=== PATIENT | male | born 1955 | race Caucasian/White ===

== ENCOUNTER 2021-01-15 17:54 | Emergency (ER) | payer OTHER, SELFPAY ==
[2021-01-15 18:05] VITALS: BP 176/93; PULSE 71; RESP 17; O2SAT 96
--- NOTE | 2021-01-15 18:05 | ED.GENADULT ---
HPI - General Adult General Chief complaint: Unspecified Stated complaint: facial swelling Time Seen by Provider: 01/15/21 18:05 History of Present Illness HPI narrative: 65-year-old male recently diagnosed with sinusitis on prednisone and Zyrtec also with history of hypertension complaining of 5-day history of right-sided facial swelling now getting worse. Swelling on the right side of his cheek in the maxillary region to the suborbital region. Tender, no fluctuance. Patient denies dental pain, no difficulty swallowing, no wheezing, no shortness of breath, no known allergies. No lip swelling, no rashes. No previous history of same. Related Data Allergies Allergy/AdvReac Type Severity Reaction Status Date / Time amoxicillin Allergy Unknown Rash Verified 01/15/21 18:10 Penicillins Allergy Unknown Rash Verified 01/15/21 18:10 Review of Systems Review of Systems: CONSTITUTIONAL: no fever, no weight loss, no confusion EYES: no vision changes, no eye pain ENT: no rhinorrhea, no sore throat, no difficulty swallowing, R sided facial swelling, no dental pain CARDIOVASCULAR: no chest pain, no leg edema, no palpitations RESPIRATORY: no cough, no shortness of breath, no hemoptysis GASTROINTESTINAL: no abdominal pain, no nausea, no vomiting, no diarrhea GENITOURINARY: no flank pain, no dysuria, no hematuria SKIN: no rash, no jaundice MUSCULOSKELETAL: no back pain, no trauma. NEUROLOGIC: No headache, no dizziness, no focal weakness PSYCHIATRIC: No hallucinations, no suicidal ideation [facility] Family History Family History (Updated 11/09/15 @ 23:21 by DOCTOR UNKNOWN) Father Hypertension Mother Patient's mother is in good health Sibling Family history of malignant neoplasm of brain Social History Social History Smoking status: Never smoker Alcohol intake: never Exam Narrative: General: alert, afebrile, answering all questions appropriately Head: normocephalic, atraumatic Eyes: EOMI bilaterally, anicteric, no injection ENT: moist mucous membranes, oropharynx patent, no rhinorrhea uvula midline, no soft palate swelling, poor maxillary dentition with multiple dental caries and fractured molars. no periapical abscess noted but tender at R first maxillary molar Neck: supple, trachea midline, no JVD, no neck swelling EXT: no deformity noted, moving all extremities equally Skin: warm, dry, no pallor Neuro: alert, oriented x 3; CN 2-12 grossly intact, no dysarthria Psych: affect appropriate, though content normal Course Vital Signs Vital signs: Vital Signs Pulse Rate 71 01/15/21 18:05 Respiratory Rate 17 01/15/21 18:05 Blood Pressure 176/93 H 01/15/21 18:05 Pulse Oximetry 96 01/15/21 18:05 Pulse Rate 79 01/15/21 20:20 Respiratory Rate 18 01/15/21 20:20 Blood Pressure 141/82 H 01/15/21 20:20 Pulse Oximetry 97 01/15/21 20:20 Medical Decision Making MDM Narrative Medical decision making narrative: Exam consistent with dental infection although patient denies dental pain he does have tenderness at the right first maxillary molar with multiple dental caries and fractured teeth. No difficulty swallowing, no shortness of breath, uvula midline no peritonsillar abscess or angioedema noted. No skin abscess on cheek noted. Swelling most likely consistent with dental infection. Plan is to give antibiotics and pain control with ibuprofen as needed. Patient to follow-up with dentist this week without fail. Patient will return if fever, increased facial swelling, swelling of neck or any swelling that passes the midline. All questions answered. Patient discharged home in no apparent distress afebrile ambulatory with steady gait. Differential Diagnosis Differential Diagnosis: Dental infection, angioedema, skin abscess, eye infection Medical Records Medical records reviewed: Yes I reviewed the external patient's medical records. Vital Signs Vital Signs: Vital Signs Pulse Rate 71 01/15/21 18:05 Res
[2021-01-15] MEDS: KETOROLAC 15 MG/ML VIAL (*BKC) IV PUSH (18:20)
[2021-01-15] MEDS: CLINDAMYCIN 600 MG/D5W 50 ML 600 MG/50 ML PIGGYBACK 100 MG IVPB (19:19)
[2021-01-15 20:20] VITALS: BP 141/82; PULSE 79; RESP 18; O2SAT 97
--- NOTE | 2021-01-23 07:55 | PC.NURSE ---
clindamycin infused on 01/15/21 at 1949.
== END 2021-01-15 20:23 | disposition home or self-care (01) ==
PROVIDERS: Emergency Provider Emergency Medicine; PCP Physician Assistant
DX: K04.7 Periapical abscess without sinus (principal); J32.9 Chronic sinusitis, unspecified; I10 Essential (primary) hypertension
CPT/HCPCS: 96365; 96375; 99284; J1885

== ENCOUNTER 2024-08-26 00:47 | Day surgery (SDC) | payer MEDICARE, SELFPAY ==
[2024-08-17 13:40] VITALS: BMI 41.1
--- OUTSIDE RECORDS SUMMARY | 2024-08-26 00:50 | XMS_ITS | Clinical Summary ---
Author Organization [facility] Address [address] [place] [id number] Care Team Providers Care Community Associate Name Role Phone Unavailable Primary Care Provider Unavailabl e Social History Tobacco Use Types Packs/Day Years Used Date Smoking Tobacco: Never Assessed Sex and Gender Information Value Date Recorded Sex Assigned at Not on file Legal Sex Male 11:13 AM CDT Gender Identity Not on file Sexual Orientation Not on file Plan of Treatment Health Maintenance Due Date Last Done Comments Colorectal Cancer Screening Colonoscopy (10 Years) 1955 Hepatitis C 09/04/1975 Pneumococcal Vaccine: 50+ Years (1 of 1 - PCV) 09/04/2007 Zoster Vaccines (1 of 2) 09/04/2007 Annual Medicare Wellness Visit 2022 COVID-19 Vaccine (1 - 2023-2 5 season) 2023 DTaP, Tdap and Td Vaccines ( 3 - Td or Tdap) 05/29/2026 05/29/2016, 10/01/2007 RSV Immunization or 60+ Years (1 - 1-dose 75+ series) 2032 Meningococcal B Vaccine Aged Out No l onger eligible based on patient's age to complete this topic Meningococcal Vaccine Aged Out No jackson eugenie eligible based on patient's age to complete this topic RSV Immunizations Under 20 Months Aged Out No longer eligible b ased on patient's age to complete this topic Insurance [employer]
--- OUTSIDE RECORDS SUMMARY | 2024-08-26 00:50 | XMS_ITS | Data Portability ---
Author Organization [place] [email or web address], Main Office Address [address] [place] [address] Care Team Providers Care Technical Staff Engineer Name Role Phone KOURTNEY PATEL Primary Care Provider KOURTNEY PATEL Referring Provider Assessment Encounter Date Assessment Date Assessment LastModified by Organization Details LastModified Time 01/01/2023 01/01/2023 HPI: 67-year-old male in today for evaluation of left greater than right knee pain. We have seen him in the past for his right knee. He has mkin-gh-sien osteoarthritis lateral compartment on the PA flexion view. His chief complaint right now is pain in the medial aspect of the left knee. This started about 5-6 weeks ago. Pain came on spontaneously. It is in the anterior medial aspect of the knee reveals a. He is taking ibuprofen 800 mg once a day. he has had a little bit improvement of his symptoms but not enough. He has had cortisone injection in the right knee in the past and wished to have injections in both knees today try to get some relief of his symptoms. Physical exam:67-year-old male alert pleasant. He has moderate effusions in both knees. He has anku-ep-ahdtgtch tenderness over the anterior medial aspect of the left knee. No lateral joint line tenderness. No posterior medial joint line tenderness. Moderate pain with patellofemoral grind. Hip range of motion causes no discomfort. he has mild edema in both lower extremities which is chronic. No redness or warmth noted. After ChloraPrep used on skin 20 mg Kenalog and 3 cc of 0.5% ropivacaine was injected in both knees. Risk of infection discussed. Impression: 67-year-old male who has moderate medial compartment osteoarthritis in the left knee which was aggravated little more than a month ago. He has known qlvg-dd-mfge osteoarthritis lateral compartment in the right knee on the PA flexion view. I discussed x-rays with him again. Again he wished to have cortisone injection both of his knees today. He is going to continue with the ibuprofen on as-needed basis. He may repeat cortisone injections often as every 3 months. He will call if he does not get satisfactory improvement of his symptoms. 20 minutes was spent in discussion with the patient more than half of this in wrpk-ve-fsei conversation [email or web address] Not available 01/01/2023 13:01:43 04/16/2023 04/16/2023 The patient has moderately severe primary osteoarthritis both knee joints. Noted on x-ray previously and exam. At his request under sterile conditions I injected both knee joints in the office today with 4 cc 0.5% bupivacaine and 20 mg of Kenalog each. The patient tolerated the procedure well. We discussed treatment options for anti-inflammatory medication on a regular basis he would like to try meloxicam 15 mg daily this was sent to his pharmacy today for him. He will avoid other anti-inflammatori es for now. We also talked about the possibility of a gel shot somewhere down the road talked about it in detail he will think about it he will see how his cortisone injections work for him if he decides he wants to do the gel shots he will call. Otherwise we will see him back as needed he voiced understanding agrees with above plan will call for any further problems difficulties or questions. Not available 04/16/2023 10:29:33 09/25/2023 09/25/2023 Patient has moderately severe primary osteoarthritis both knee joints as described at his request under sterile conditions I injected both knee joints in the office today with 4 cc of 0.5% Marcaine and 20 mg of Kenalog each. The patient tolerated the procedure well. The patient also inquired about gel shots he would like to try those we will give the cortisone a couple of months to work see how he does he will call us back when he is ready to try gel shots we will get these approved for him. He voiced understanding agrees above plan will continue with current conservative measures call for any further problems difficulties or questions. Not available 09/25/2023 12:01:11 01/07/2024 01/07/2024 The patient has moderately severe primary osteoarthritis both knees today's x-rays show minor advancement of changes compared to 1 year ago marginal osteophytes are slightly bigger particularly the patellofemoral articulations otherwise no significant change noted. We talked about treatment options he would like to proceed with the cortisone therefore under sterile conditions I injected both knee joints in the office today with 4 cc 0.5% bupivacaine and 20 mg of Kenalog each. The patient tolerated the procedures well. He will continue with meloxicam and current conservative measures he voiced understanding agrees above plan I will see him back in 3 months if necessary. We did talk about gel shots previously but this is too expensive for him and the cortisone works very well so we will stick with cortisone. Not available 01/07/2024 10:54:01 04/21/2024 04/21/2024 The patient has moderately severe primary osteoarthritis both knees as described. We talked about treatment options we talked about gel shots previously however his insurance does not pay very well on that and would cost him a significant amount of money so he would like to stick with the cortisone which works pretty well for him. At his request under sterile conditions I injected the patient's bilateral knee joints in the office with 4 cc of 0.5% bupivacaine and 20 mg of Kenalog each. The patient tolerated the procedures well. I will see him back as needed we can do this again in 3 months if necessary he voiced understanding and agreed with the above plan will call for any further problems difficulties or questions. Not available 04/21/2024 10:35:26 Plan of Treatment Reminders Order Date Submit Date Provider Last Modified By Organization Details Last Modified Time Details Appointments None recorded. Lab None recorded. Referral None recorded. Procedures injection/a spiration joint/bursa (PROC) 2024 025 [email or web address] In-Office Order, Internal Use Only DO Not Attach Compendium DO Not Attach Compendium, Do Not Delete/merge, [id number] 10:12:29 injection/a spiration joint/bursa (PROC) 2023 024 [email or web address] In-Office Order, Internal Use Only DO Not Attach Compendium DO Not Attach Compendium, Do Not Delete/merge, [id number] 4 10:34:06 injection/a spiration joint/bursa (PROC) 2023 024 [email or web address] In-Office Order, Internal Use Only DO Not Attach Compendium DO Not Attach Compendium, Do Not Delete/merge, [id number] 4 11:41:18 injection/a spiration joint/bursa (PROC) 2023 024 [email or web address] In-Office Order, Internal Use Only DO Not Attach Compendium DO Not Attach Compendium, Do Not Delete/merge, [id number] 4 10:08:20 injection/a spiration joint/bursa (PROC) - in office procedure, administere d by provider 2022 023 [email or web address] In-Office Order, Internal Use Only DO Not Attach Compendium DO Not Attach Compendium, Do Not Delete/merge, 3 12:46:31 Surgeries None recorded. Imaging XR, knee 2023 024 [email or web address] [facility] [place], [facility] [facility] [address], [place], [address], 4 10:55:14 XR, knee 2022 023 [email or web address] [facility] [address], [place], [address], 3 13:05:34 Medication Orders bupivacaine HCl 0.5 % (5 mg/mL) injection solution 2024 025 [email or web address] [facility] [address] [address], [place], [address], 5 10:36:06 Kenalog 10 mg/mL suspension for injection 2024 025 [email or web address] [facility] [address], [place], [address], 5 10:36:06 bupivacaine HCl 0.5 % (5 mg/mL) injection solution [address] [facility] [address] [place], [address], 4 10:43:27 Kenalog 10 mg/mL suspension for injection [address] [facility] [address] [place], [address], 4 10:43:27 Marcaine (PF) 0.5 % (5 mg/mL) injection solution [address] [facility] [address] [place], [address], 4 10:28:53 Kenalog 10 mg/mL suspension for injection [address] [facility] [address] [place], [address], 4 10:28:18 bupivacaine HCl 0.5 % (5 mg/mL) injection solution [address] [facility] [address] [place], [address], 4 10:28:03 Kenalog 10 mg/mL suspension for injection [address] [facility] [address] [place], [address], 4 10:28:18 meloxicam 15 mg tablet [address] [facility] [address] [place], [address], 4 12:19:22 Kenalog 10 mg/mL suspension for injection 2022 023 [email or web address] [facility] [address], [address], [place], [address], 4 10:28:18 ropivacaine (PF) 5 mg/mL (0.5 %) injection solution 2022 023 [email or web address] [facility] [address] [facility], [place], [address], 4 10:29:00 Patient TargetsNo targets recorded. Patient Instructions Encounter Date Encounter Id Patient Instructions Last Modified By Organization Details Last Modified Time 09/25/2023 [id number] viscosupplementa tion treatment* Not available 09/29/2023 09:20:43 Reason for Referral None Reported. Results Created Date Observation Date Name Description Value Unit Range Abnormal Flag Note LastModifiedBy Organization Detail LastModifiedTime 01/02/20 23 XR, knee No observ ation record ed. [email or web address] [facility] [address] [facility], [place], [address], 01/01/2023 12:51:47 01/07/20 24 XR, knee No observ ation record ed. [email or web address] [facility] [place] [address], [place], [address], 01/07/2024 10:55:12 Result Notes None recorded. Problems Name Problem SNOMED Code Status Onset Date Resolution Date Notes Provider Name and Address Organization Details Recorded Time Osteoarthr itis 365699468 Active Not Available [facility] 3 02:58:38 Pain of bilateral knee joints 0635265168264 04 Active 2022 AQUILES Mathew, [employer] 3 12:02:27 Bilateral osteoarthr itis of knees 5798314933721 07 Active 2023 BRETT Middleton [address], [address], [place], [address] , [employer] 4 10:29:49 Problem Notes None recorded. Procedures Surgical History Date Name Laterality Status Provider Name and Address Organization Details Recorded Time Knee arthroscopy /surgery completed Sherin Jonh AQUILES [place] [facility] 01/01/2023 12:01:48 Imaging Results Imaging Date Name Status LastModified by Organiz ation Details LastModified Time 01/01/2023 XR, knee completed [email or web address] [facility] [place] [address], [place], [address], 01/01/2023 12:51:47 01/07/2024 XR, knee completed [email or web address] [facility] [place] [address] [facility] [address], [place], [address], 01/07/2024 10:55:12 Procedure Notes None recorded. Medical Equipment None Reported. Allergies Allergen ID Allergen Name Allergen Category Reaction Reaction Severity Criticality Documentation Date Start Date Code Code System Note Provider Name and Address Organization Details Recorded Time 5271 amoxicill in medicatio n hives Not available Not available 06/11/2022 723 RxNorm Not Available [facility] 03:08:34 Medications Name Sig Start Date Stop Date Status Note LastModified by Organization Details LastModified Time atorvastati n 40 mg tablet Take 1 tablet every day by oral route. 01/01 completed Not Available Not Available Not Available lisinopril 20 mg-hydrochl orothiazide 12.5 mg tablet TAKE 1 TABLET BY MOUTH ONCE DAILY 01/06 completed Not Available Not Available Not Available azithromyci n 250 mg tablet TAKE 2 TABLETS BY MOUTH ON DAY 1, AND THEN TAKE 1 TABLET BY MOUTH ONCE A DAY ON DAY 2 THROUGH DAY 5 active Not Available Not Available No t Available ibuprofen 800 mg tablet TAKE 1 TABLET BY MOUTH TWICE DAILY NEEDED FOR PAIN active Not Available Not Available No t Available meloxicam 15 mg tablet Take 1 tablet by mouth once daily 2024 active Not Available Not Available Not Avai lable atovaquone 250 mg-proguani l 100 mg tablet 05/09 completed Not Available Not Available Not Available lisinopril 20 mg tablet TAKE 1 TABLET BY MOUTH ONCE DAILY 01/06 completed Not Available Not Available Not Available bupivacaine HCl 0.5 % (5 mg/mL) injection solution Take 40 mg by injection route. 2024 active Not Available Not Available Not Avai lable prednisone 20 mg tablet TAKE 1 TABLET BY MOUTH ONCE DAILY active Not Available Not Available No t Available amlodipine 5 mg tablet TAKE 1 TABLET BY MOUTH ONCE DAILY active Not Available Not Available No t Available sulfamethox azole 800 mg-trimetho prim 160 mg tablet TAKE 1 TABLET BY MOUTH EVERY 12 HOURS active Not Available Not Available No t Available tamsulosin 0.4 mg capsule TAKE 1 CAPSULE BY MOUTH ONCE DAILY active Not Available Not Available No t Available Kenalog 10 mg/mL suspension for injection Take 40 mg by injection route. 2024 active [facility]: 0003- 0494- 20 Not Available Not Available Not Available simvastatin 20 mg tablet 05/09 completed Not Available Not Available Not Available irbesartan 300 mg-hydrochl orothiazide 12.5 mg tablet TAKE 1 TABLET BY MOUTH ONCE DAILY active Not Available Not Available No t Available lisinopril 20 mg-hydrochl orothiazide 25 mg tablet TAKE 1 TABLET BY MOUTH ONCE DAILY 01/06 completed Not Available Not Available Not Available doxycycline hyclate 100 mg tablet TAKE 1 TABLET BY MOUTH EVERY 12 HOURS active Not Available Not Available No t Available finasteride 5 mg tablet TAKE 1 TABLET BY MOUTH ONCE DAILY active Not Available Not Available No t Available Marcaine (PF) 0.5 % (5 mg/mL) injection solution Take 40 mg by injection route. 01/06 completed Not Available Not Available Not Available Euflexxa 10 mg/mL (mw 2.4-3.6 million) intra-artic ular syringe Inject 2 mL by intra-art icular route as directed for 21 days, for bilateral knee osteoarth ritis. 01/06 completed Not Available Not Available Not Available ropivacaine (PF) 5 mg/mL (0.5 %) injection solution in office procedure , administe red by provider 01/06 completed [facility] [phone] -[phone] Not Available Not Available Not Available Xarelto 15 mg tablet 05/09 completed Not Available Not Available Not Available Xarelto 20 mg tablet 05/09 completed Not Available Not Available Not Available Vitals Date Recorded Body height Body mass index (BMI) Body weight Provider Name and Address Organization Details Last Updated DateTime 01/01/2023 165.1 cm 43.3 kg/m2 566064.02 g AQUILES Mathew [facility] 01/01/2023 12:28:43 Date Recorded Body height Body mass index (BMI) Body weight Provider Name and Address Organization Details Last Updated DateTime 04/16/2023 172.72 cm 39.5 kg/m2 024125.02 g June Marroquin [facility] 04/16/2023 10:05:57 Date Recorded Body height Body mass index (BMI) Body weight Provider Name and Address Organization Details Last Updated DateTime 09/25/2023 172.72 cm 39.4 kg/m2 774421.42 g Paula Jolley [facility] 09/25/2023 11:39:05 Date Recorded Body height Body mass index (BMI) Body weight Provider Name and Address Organization Details Last Updated DateTime 01/07/2024 172.72 cm 39.5 kg/m2 395953.02 g June Marroquin [facility] 01/07/2024 10:26:37 Date Recorded Body height Body mass index (BMI) Body weight Provider Name and Address Organization Details Last Updated DateTime 04/21/2024 172.72 cm 40.3 kg/m2 147337.98 g June Marroquin [facility] 04/21/2024 10:11:02 Social History None recorded. Functional Status Question Answer Note LastModified by Organizat ion Details LastModified Time What is your level of alcohol consumption? Occasional Information not available 01/07/2024 Mental Status None recorded. Family History Relationship Description Onset Age of this Age Resolved Age Notes LastModified by Organization Details LastModified Time Maternal Grandfather Family history of stroke [email or web address] Not available 2022 12:00:58 Maternal Grandfather Hypertensive disorder Not available 2022 12:01:26 Paternal Grandfather Family history of malignant neoplasm [email or web address] Not available 2022 12:01:11 Medical History Condition Response HISTORY OF DRUG ABUSE Y HYPERTENSION Y Past Encounters Encounter ID Performer Location Encounter Start Date Encounter Closed Date Diagnosis/Indication Diagnosis SNOMED-CT Code Diagnosis ICD10 Code Diagnosis Note [id number] Eusebio Herr MD [facility] [place] [address] [place] [address] 01/01/2023 11:19:35 01/01/2023 13:05:34 Pain of bilateral knee joints 6309305723 42116 M25.561 M25.537 [id number] Eusebio Herr MD [facility] [place] [address] [place] [address] 04/16/2023 10:03:43 04/16/2023 11:03:07 Pain of bilateral knee joints 0770663378 19594 M25.561 M25.562 Bilateral osteoarthritis of knees 8714670001 62334 M17.0 [id number] Armond Zurita MD [facility] [place] [address] [place] [address] 09/25/2023 11:35:33 09/25/2023 12:00:10 Bilateral osteoarthritis of knees 0576872149 29812 M17.0 Pain of bi lateral knee joints 3398028008 17919 M25.561 M25.665 [id number] Armond Zurita MD [facility] [place] [address] [place] [address] 01/07/2024 10:10:30 01/07/2024 10:49:35 Bilateral osteoarthritis of knees 3012266582 41952 M17.0 Pain of bi lateral knee joints 3564867400 05790 M25.561 M25.853 [id number] Armond Zurita MD [facility] [place] [address] [place] [address] 04/21/2024 10:07:28 04/21/2024 11:34:47 Bilateral osteoarthritis of knees 5173345346 18964 M17.0 Pain of bi lateral knee joints 6923274133 32535 M25.561 M25.562 Health Concerns Section Related Observation LastModified by Organization Detai ls LastModified Time None Recorded Concern Status LastModified by Organization Details LastModified Time None Recorded Advance Directives Directive None Recorded Payers Encounter Date Sequence Insurance Name Policy Number Policy Mallory Covered Member ID Mallory Member ID Guarantor Name 01/01/2023 1 [employer] (MEDICARE REPLACEMENT /ADVANTAGE - PPO) [id number] Landon Donna Schindewolf [id number] Landon Schindewolf 04/16/2023 1 [employer] (MEDICARE REPLACEMENT /ADVANTAGE - PPO) [id number] Landon R Schindewolf [id number] Landon Schindewolf 09/25/2023 1 [employer] (MEDICARE REPLACEMENT /ADVANTAGE - PPO) [id number] Landon R Schindewolf [id number] Landon Schindewolf 01/07/2024 1 [employer] (MEDICARE REPLACEMENT /ADVANTAGE - PPO) [id number] Landon Thompson Schindewolf [id number] Landon Schindewolf 04/21/2024 1 [employer] (MEDICARE REPLACEMENT /ADVANTAGE - PPO) [id number] Landon Thompson Schindewolf [id number] Landon Schindewolf Notes Date Note Type Note Provider Name and Address Organization Details Recorded Time 04/16/2023 text/html Patient returns complaining of bilateral knee pain. Three months ago he had cortisone injections he has worked fairly well for him did not give him complete relief but allowed him to get by until now. He states his knee pain has returned he denies any effusion or swelling no new trauma or injury. He has moderately severe primary osteoarthritis both knees PA flexion views show significant narrowing medial aspect of the left knee lateral aspect of the right knee. He does take ibuprofen 800 mg once a day he is wondering about prescription medication other than this. He would like to try something different. In the meantime he would also like repeat cortisone injections both knees. BRETT Middleton [address] [place] [address], [facility] [address], [place], [address], [email or web address] 04/16/2023 10:30:14 09/25/2023 text/html patient returns with bilateral knee pain he had shot of cortisone in April of this year which gave him 4-5 months relief. He states recently his knees have started to flare up again he has known moderate primary osteoarthritis both knees noted on previous x-rays which were reviewed today with the patient. Has moderate narrowing in the lateral compartment of the right knee medial compartment of the left knee and the patellofemoral articulations show good joint space remaining however he has significant large spurring off the lateral edge of the bilateral patellas smaller marginal osteophytes are noted off the medial edge of the bilateral patellas and distal femur femoral condyles. Denies any new trauma or injury no new symptoms or complaints no effusion or swelling no erythema heat or other signs of infection he does no crepitation aching pain problems with standing or walking for long periods can not squat kneel go up and down stairs well he comes in today requesting repeat cortisone injections both knees. BRETT Middleton [address], [place], [address], [employer] 09/25/2023 12:01:41 01/07/2024 text/html Patient returns with bilateral knee pain he has moderately severe primary osteoarthritis both knees it has been more than a year since his last x-rays we will get updated x-rays today to see if there are any significant changes in either knee. He states shots of cortisone 3 months ago gave him excellent relief it has been about 3-1/2 months since his last injections. Recently his pain has started to flare up again today it is about a 4 on a scale of 1-10. Denies any new symptoms no new trauma or injury no effusion or swelling no locking or catching would like both knees injected again today. He does take meloxicam daily this seems to help also. He gets by very well with conservative measures so he is not ready for total knee arthroplasties yet. New past medical history sheet was reviewed and signed on intake sheet of today's date drug allergies current medications family social history previous surgical history 10 point review of systems was reviewed and discussed in detail today with the patient. BRETT Middleton [address], [place], [address], [employer] 01/07/2024 10:56:05 04/21/2024 text/html Patient returns with bilateral knee pain he has known moderately severe primary osteoarthritis both knees with the beginning he has a tqpj-sf-qnqp osteoarthritis in the medial compartment of the left knee and the lateral compartment of the right knee with a mild windswept appearance. The patient states his pain is about a 6 on a scale of 1-10 shots of cortisone every 3 months or so gave him pretty good relief for awhile. His knee pain has flared up once again it has been 3-1/2 months since his last injections. Denies any new symptoms no new trauma or injury no effusion or swelling no erythema heat or other signs of infection. Range of motion is well-maintained he has aching pain corresponding to the qfvh-aw-udzo changes in both knees. BRETT Middleton [address] [facility], [facility] [address], [place], [address], [place] [facility] [employer] 04/21/2024 10:35:39
[2024-08-26 12:01] VITALS: BP 147/91; PULSE 70; RESP 20; TEMP 36.3; O2SAT 100
[2024-08-26] MEDS: LACTATED RINGERS 1,000 ML 150 ML IV CONT (12:04)
--- NOTE | 2024-08-26 12:44 | P.PNAN_ITS ---
Anes - Initial Pre Proc Eval Procedure: Operation Date: 08/26/24 13:00 Proposed Procedures p Screening Colonoscopy - Damian Leahy MD Date/Time: 08/26/24 12:44 Surgeon: Damian Leahy MD Pre Op Diagnosis: Encounter for screening for malignant neoplasm of Patient Data Age: 68 Gender: M Height: 1.73 m Weight: 124.7 kg Last Vital Signs Temp 36.3 C L 08/26/24 12:01 Pulse 70 08/26/24 12:01 Resp 20 08/26/24 12:01 BP 147/91 H 08/26/24 12:01 Pulse Ox 100 08/26/24 12:01 O2 Del Method Room Air 08/26/24 12:01 Allergies Allergy/AdvReac Type Severity Reaction Status Date / Time amoxicillin Allergy Unknown Rash Verified 08/26/24 11:59 Penicillins Allergy Unknown Rash Verified 08/26/24 11:59 Home Medications Medication Instructions Recorded Confirmed Type cyclobenzaprine 10 mg tablet 10 mg PO .PRN 01/31/22 08/17/24 History meloxicam 15 mg tablet 15 mg PO DAILY 08/11/23 08/26/24 History acetaminophen 650 mg PO DAILY PRN pain 03/01/24 08/17/24 History finasteride 5 mg tablet 5 mg PO DAILY #90 tabs 03/01/24 08/26/24 Rx tamsulosin 0.4 mg capsule 0.4 mg PO DAILY #90 caps 03/01/24 08/26/24 Rx irbesartan 300 1 tablet PO DAILY #90 tabs 05/17/24 08/26/24 Rx mg-hydrochlorothiazide 12.5 mg tablet amlodipine 5 mg tablet 5 mg PO DAILY #90 tabs 06/20/24 08/26/24 Rx Patient hx anesthesia problems: none Family hx anesthesia problems: none Results Review: All pre-operative results and documents have been reviewed as part of the pre- operative evaluation. [facility] Past Medical History Medical History Need for hepatitis C screening test Snoring BMI 40.0-44.9, adult Bilateral knee pain Myalgia Bilateral shoulder pain Dysuria BMI 36.0-36.9,adult Low back pain BPH (benign prostatic hyperplasia) Encounter to establish care Hyperlipidemia HTN (hypertension) Family History Family History Father Hypertension Lewy body dementia Mother Patient's mother is in good health Sibling Family history of malignant neoplasm of brain Grandparent Stomach cancer Diabetes mellitus Hypertension Social History Social History Smoking status: Never smoker Alcohol intake: current Drinks per week: 5 Substance use: never Substance use type: does not use Lack of Transportation: No Lack of Food: Never True Current Housing: I Have Housing Concerned About Future Housing: No Difficulty Paying Gas/Electric Bills: No Difficulty Paying for Meds: No Currently Unemployed: No Education: High School Diploma/GED Difficulty w/ Childcare or Family Care: No Anes - Eval Final PreProcedure Day of Procedure 08/26/24 12:44 Patient weight: morbidly obese Heart: regular rate and rhythm Lungs: clear to auscultation Airway: Mallampati scale class III Neurological: alert and oriented Last oral intake: >/= 8 hours ASA classification: III Emergent: no Anesthetic plan: proceed Anesthesia type and monitoring: general GIVS and standard monitoring Results Review: All pre-operative results and documents have been reviewed as part of the pre- operative evaluation. Informed Consent: The patient's anesthetic plan and its attendant risks and benefits were discussed with the patient/family/POA. Questions were solicited and answers provided to the satisfaction of the patient/family/POA.
--- NOTE | 2024-08-26 13:13 | PM.HPGS ---
History of Present Illness History of Present Illness Consent: Risks, benefits, and alternatives have been discussed and questions answered. Patient agrees to proceed with procedure. Chief complaint: Encounter for screening for malignant neoplasm of Narrative: Landon Menendez is a 68 year old male here for screening colonoscopy Review of Systems Review of Systems: All systems reviewed & are unremarkable except as noted in HPI and below PMFSH Past Medical History Medical History (Updated 08/26/24 @ 13:14 by Damian Leahy MD) Colon cancer screening Need for hepatitis C screening test Snoring BMI 40.0-44.9, adult Bilateral knee pain Myalgia Bilateral shoulder pain Dysuria BMI 36.0-36.9,adult Low back pain BPH (benign prostatic hyperplasia) Encounter to establish care Hyperlipidemia HTN (hypertension) Family History Family History Father Hypertension Lewy body dementia Mother Patient's mother is in good health Sibling Family history of malignant neoplasm of brain Grandparent Stomach cancer Diabetes mellitus Hypertension Social History Social History Smoking status: Never smoker Alcohol intake: current Drinks per week: 5 Substance use: never Substance use type: does not use Lack of Transportation: No Lack of Food: Never True Current Housing: I Have Housing Concerned About Future Housing: No Difficulty Paying Gas/Electric Bills: No Difficulty Paying for Meds: No Currently Unemployed: No Education: High School Diploma/GED Difficulty w/ Childcare or Family Care: No Meds Home Medications and Allergies Home Medications Medication Instructions Recorded Confirmed Type cyclobenzaprine 10 mg tablet 10 mg PO .PRN 01/31/22 08/17/24 History meloxicam 15 mg tablet 15 mg PO DAILY 08/11/23 08/26/24 History acetaminophen 650 mg PO DAILY PRN pain 03/01/24 08/17/24 History finasteride 5 mg tablet 5 mg PO DAILY #90 tabs 03/01/24 08/26/24 Rx tamsulosin 0.4 mg capsule 0.4 mg PO DAILY #90 caps 03/01/24 08/26/24 Rx irbesartan 300 1 tablet PO DAILY #90 tabs 05/17/24 08/26/24 Rx mg-hydrochlorothiazide 12.5 mg tablet amlodipine 5 mg tablet 5 mg PO DAILY #90 tabs 06/20/24 08/26/24 Rx Allergies Allergy/AdvReac Type Severity Reaction Status Date / Time amoxicillin Allergy Unknown Rash Verified 08/26/24 11:59 Penicillins Allergy Unknown Rash Verified 08/26/24 11:59 Vital Signs Vital Signs - 24 hr 08/26/24 12:01 Temperature 97.3 F L Pulse Rate 70 Respiratory Rate 20 Blood Pressure 147/91 H Pulse Oximetry 100 Oxygen Delivery Room Air Exam Const: General: comfortable and no acute distress HENMT: Face/Nose/Sinus: Normal nares present Eyes: General: appearance normal, both eyes and all related structures Neck: Neck: no JVD Resp: Auscultation: clear to auscultation bilaterally Cardio: Rate: regular rate Rhythm: regular rhythm GI: Inspection: non-distended GI Palp: Yes Soft to palpation Skin: General skin exam: normal color Neuro: General: gait normal Speech: normal speech Extrem: General: normal to inspection Psych: Mental Status: mental status grossly normal Assessment and Plan Assessment and plan (1) Colon cancer screening: Code(s): Z12.11 - Encounter for screening for malignant neoplasm of colon Status: Acute Assessment and Plan: colonoscopy
[2024-08-26 13:31] VITALS: BP 128/84; PULSE 66; RESP 20; O2SAT 98
[2024-08-26 13:41] VITALS: BP 143/91; PULSE 64; RESP 18; O2SAT 98
[2024-08-26 13:51] VITALS: BP 152/94; PULSE 62; RESP 18; O2SAT 97
== END 2024-08-26 14:01 | disposition home or self-care (01) ==
PROVIDERS: PCP Nurse Practitioner Family; Referring Provider Nurse Practitioner Family; Visit Provider Internal Medicine Gastroenterology
PROC: 0DJD8ZZ Inspection of Lower Intestinal Tract, Via Natural or Artificial Opening Endoscopic (ICD-10-PCS; CPT 45378; principal; 2024-08-26 13:00)
DX: Z12.11 Encounter for screening for malignant neoplasm of colon (principal); K57.30 Diverticulosis of large intestine without perforation or abscess without bleeding; K64.8 Other hemorrhoids; E66.01 Morbid (severe) obesity due to excess calories; Z68.41 Body mass index [BMI] 40.0-44.9, adult
CPT/HCPCS: G0121; J2704; J7120

== ENCOUNTER 2024-09-08 08:27 | Outpatient (CLI) | payer MEDICARE, SELFPAY ==
--- NOTE | 2024-09-19 10:20 | P.SLEEP_ITS ---
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 He rarely awakens from sleep feeling short of breath. He occasionally wakes at night with heartburn, belching or coughing.??He occasionally snores, occasionally snores loudly enough that others complain. He rarely has trouble sleeping when he has a cold. He never wakes up gasping for breath during the night. He never has breathing problems at night. He never sweats excessively at night. He never notices his heart pounding or beating irregularly during the night. He rarely falls asleep during the day. He rarely falls asleep involuntarily, never falls asleep while driving. He never experiences loss of muscle tone with strong emotion. He never has daytime difficulty at work due to excessive sleepiness. He never feels paralyzed on waking or falling asleep. He never experiences vivid dreams upon waking or falling asleep. He never feels afraid of going to sleep. He never has nightmares. He rarely recalls his dreams. He rarely has thoughts racing through his mind. He never feels sad or depressed. He rarely feels anxiety. He rarely notices parts of his body jerk. He never kicks during the night. He rarely feels crawling or aching feelings in his legs. He rarely feels leg pain at night. He never has morning jaw pain, occasionally grinds his teeth at night. He rarely feels bothered by pain during the day, rarely is awakened by pain during the night. He never wakes up feeling stiff in the morning, and he rarely wakes feeling sore or achy. He rarely awakens with pain in his neck, spine, or joints. He has fatigue Normal bedtime is 8:30 p.m., falling asleep within 15-20 minute, waking twice at night to go to the bathroom, returning to sleep within 10 minutes. He wakes at 6:00 a.m.. On weekends, bedtime is 9:30 p.m., wake time is 8:00 a.m.. He estimates getting between 7 and 8 hours of sleep at night. He gets 8-9 hours on the weekends. He takes no naps in the day, however says a short nap lasting 10- 15 minutes may be refreshing. Most of the time he feels good on waking. He feels better in the morning compared to other times of day. Habits:??Tobacco: Never smoker Caffeine: 1 cup per day Alcohol: 1 beer per day Recreational substances: none PMFSH Past Medical History Medical History Colon cancer screening Need for hepatitis C screening test Snoring BMI 40.0-44.9, adult Bilateral knee pain Myalgia Bilateral shoulder pain Dysuria BMI 36.0-36.9,adult Low back pain BPH (benign prostatic hyperplasia) Encounter to establish care Hyperlipidemia HTN (hypertension) Family History Family History Father Hypertension Lewy body dementia Mother Patient's mother is in good health Sibling Family history of malignant neoplasm of brain Grandparent Stomach cancer Diabetes mellitus Hypertension Social History Social History Smoking status: Never smoker Alcohol intake: current Drinks per week: 5 Substance use: never Substance use type: does not use Lack of Transportation: No Lack of Food: Never True Current Housing: I Have Housing Concerned About Future Housing: No Difficulty Paying Gas/Electric Bills: No Difficulty Paying for Meds: No Currently Unemployed: No Education: High School Diploma/GED Difficulty w/ Childcare or Family Care: No Living arrangements: with family Spiritual care concerns: No Medications Home Medications ?Medication ?Instructions ?Recorded ?Confirmed ?Type cyclobenzaprine 10 mg tablet 10 mg PO .PRN 01/31/22 09/09/24 History meloxicam 15 mg tablet 15 mg PO DAILY 08/11/23 09/09/24 History acetaminophen 650 mg PO DAILY PRN pain 03/01/24 09/09/24 History finasteride 5 mg tablet 5 mg PO DAILY #90 tabs 03/01/24 09/09/24 Rx tamsulosin 0.4 mg capsule 0.4 mg PO DAILY #90 caps 03/01/24 09/09/24 Rx irbesartan 300 1 tablet PO DAILY #90 tabs 05/17/24 09/09/24 Rx mg-hydrochlorothiazide 12.5 mg tablet amlodipine 10 mg tablet 10 mg PO DAILY #30 tabs 09/09/24 09/09/24 Rx Sleep Procedure A full night polysomnogram using the [employer] multi-channel system recorded the standard physiologic parameters including EEG, EOG, submentalis EMG, anterior tibialis EMG, EKG, body position, nasal and oral airflow using nasal pressure sensor and thermistor. Respiratory parameters of chest and abdominal movements were recorded with Respiratory Inductance Plethysmography belts. Oxygen saturation was recorded by pulse oximetry. Video monitoring was also performed. Sleep stages, periodic limb movements, and EEG arousals were scored in 30 second epochs according to the criteria of the AASM Scoring Manual. The Apnea-Hypopnea Index was calculated using CMS guidelines for definition of hypopnea while scoring respiratory events. He slept on 3 pillows. A split night was not performed due ti request from his ordering provider. Sleep Architecture The total recording time was 521.3 minutes. The total sleep time was 350.0 minutes. Sleep latency was 22.2 minutes. REM latency was 341.0 minutes. Sleep efficiency was 67.1%. The patient had 72 awakenings for an awakening index of 12.3. Wake after sleep onset time was 149.5 minutes. The patient spent 86.0 minutes, 24.6% of total sleep time in Stage N1. The patient spent 185.5 minutes, 53.0% in Stage N2. The patient spent 40.5 minutes, 11.6% in Stage N3. The patient spent 38.0 minutes, 10.9% in Stage REM sleep. Respiratory Analysis The patient had 180 hypopneas, 25 obstructive apneas, 52 mixed apneas, and 48 central apneas for an overall Apnea Hypopnea Index of 51.8. The REM Apnea Hypopnea Index was 14.2. The NREM Apnea Hypopnea Index was 56.5. The patient had a Central Apnea Hypopnea Index of 8.2. There were no Respiratory Effort Related Arousals. The Respiratory Disturbance Index is 56.6 events per hour. There was no evidence of Joe-López Respirations. Arousals There were 234 total arousals for an arousal index of 40.1. There were 176 spontaneous arousals for an index of 30.2. There were 47 arousals due to re spiratory events for an index of 8.1. There were 3 arousals due to periodic limb movements for an index of 0.5. There were 9 arousals due to isolated limb movements for an index of 1.5. Periodic Limb Movements The patient had 27 isolated limb movements with an index of 4.6. The patient had 10 periodic limb movements with an index of 1.7. Patient had a total of 37 limb movements with a total limb movement index of 6.3. Oximetry Data The patient had an average oxygen saturation of 92.3% in sleep with a minimum oxygen saturation of 77% and a maximum oxygen saturation of 98%. The patient had 292 oxygen desaturations that were 4% or greater resulting in an Oxygen Desaturation Index of 50.1. The patient spent 43.3 minutes, 8.4% of total sleep time with an oxygen saturation below 88%. Snoring Profile Snoring was mild and intermittent. Cardiac Profile The EKG showed normal sinus rhythm, average pulse rate of 56.1 bpm with a minimum pulse of rate of 45 bpm and a maximum pulse rate of 72 bpm. No arrhythmias noted. EEG Profile Unremarkable, no evidence of seizures. Assessment and Plan Assessment and Plan (1) Obstructive sleep apnea: Code(s): G47.33 - Obstructive sleep apnea (adult) (pediatric) Status: Acute Assessment and Plan: This basic nocturnal polysomnogram on 09/08/2024 shows extremely severe obstruc tive sleep apnea, the overall apnea-hypopnea index is 51.8 with a central apnea- hypopnea index of 8.2 which is elevated, normal central apnea index should be below 5 per hour. The minimum desaturation is 77% with 43.3 minutes, 8.4% the study spent below 88%. There is a positional component, the supine apnea- hypopnea index is 96.9, nonsupine apnea-hypopnea index is 48.1, twice as severe in the supine position. The patient slept with his head elevated on 3 pillows and most of the night was spent in the left lateral position, very little of the night was spent in the supine position. He had fragmented sleep with constant shifts between wake, stage I and stage II. He had delayed REM with a decreased total amount of REM. Due to the severity of hypoxemia and elevated central ap salome index, this patient is not a candidate for auto PAP. He should have a dedicated CPAP titration in the sleep lab and should be instructed to have no naps on the day of testing. Consider a sleep aid such as Lunesta 2 mg or 3 mg to get to sleep and stay asleep. Ideally he should be able to sleep in the supine position lying on the bed, not propped on 3 pillows. Propping on pillows is weight to alleviate obstruction and is appropriate in the home setting but during testing we attempt to maintain airway patency in all positions of sleep and in all sleep stages. Patient should be strongly advised not to drive while sleepy. He does not have an elevated [place] Sleepiness Scale which is subjective, some people do not perceive being sleepy when they in fact are at risk for falling asleep easily. BMI is 41.1. Weight management is advised. Clinical data suggests that weight loss of 10% can reduce the severity of respiratory events and snoring and improve AHI by as much as 25%. (2) Central sleep apnea: Code(s): G47.31 - Primary central sleep apnea Status: Acute Assessment and Plan: The patient has a central apnea index of 8.2 was elevated, normal is fewer than 5 events per hour. Elevated central apneas can be seen in the setting of congestive heart failure, stroke, opioid and alcohol. Elevated central apneas may also occur without a prior underlying problem. Consider echocardiogram to assure that the ejection fraction is greater than 45%. Data The data obtained during this sleep study is adequate for interpretation. Certification This sleep study has been reviewed by a board certified sleep medicine physician.
[2024-09-19 11:04] VITALS: BMI 41.0
== END 2024-09-09 06:25 | disposition home or self-care (01) ==
PROVIDERS: PCP Nurse Practitioner Family; Visit Provider Nurse Practitioner Family
DX: R06.83 Snoring (principal); I10 Essential (primary) hypertension; G47.9 Sleep disorder, unspecified; G47.33 Obstructive sleep apnea (adult) (pediatric); G47.31 Primary central sleep apnea
CPT/HCPCS: 95810; 99212; G0463

== ENCOUNTER 2024-09-23 09:42 | Outpatient (CLI) | payer MEDICARE, SELFPAY ==
[2024-10-17 17:04] VITALS: BMI 41.0
--- NOTE | 2024-10-17 17:04 | P.SLEEP_ITS ---
Sleep Study Date of Study: 09/23/24 Ordering Provider: Thelma Aguilar NP Interpreting Physician: Areli Dasilva DO Sleep Study Type: BiPAP Titration Height: 1.73 m Weight: 122.47 kg Body Mass Index: 41.0 Neck Circumference (inches): 18 [place]: 7 Reason for Sleep Study Polysomnogram on 09/08/2024 that showed an overall AHI of 51.8, RAMONITA of 8.2, with desaturation down to 77%. Sleep History Landon Menendez is a 69-year-old man who is required to have sleep testing for a [employer] physical exam. He rarely awakens from sleep feeling short of breath. He occasionally wakes at night with heartburn, belching or coughing.??He occasionally snores, occasionally snores loudly enough that others complain. He rarely has trouble sleeping when he has a cold. He never wakes up gasping for breath during the night. He never has breathing problems at night. He never sweats excessively at night. He never notices his heart pounding or beating irregularly during the night. He rarely falls asleep during the day. He rarely falls asleep involuntarily, never falls asleep while driving. He never experiences loss of muscle tone with strong emotion. He never has daytime difficulty at work due to excessive sleepiness. He never feels paralyzed on waking or falling asleep. He never experiences vivid dreams upon waking or falling asleep. He never feels afraid of going to sleep. He never has nightmares. He rarely recalls his dreams. He rarely has thoughts racing through his mind. He never feels sad or depressed. He rarely feels anxiety. He rarely notices parts of his body jerk. He never kicks during the night. He rarely feels crawling or aching feelings in his legs. He rarely feels leg pain at night. He never has morning jaw pain, occasionally grinds his teeth at night. He rarely feels bothered by pain during the day, rarely is awakened by pain during the night. He never wakes up feeling stiff in the morning, and he rarely wakes feeling sore or achy. He rarely awakens with pain in his neck, spine, or joints. He has fatigue Normal bedtime is 8:30 p.m., falling asleep within 15-20 minute, waking twice at night to go to the bathroom, returning to sleep within 10 minutes. He wakes at 6:00 a.m.. On weekends, bedtime is 9:30 p.m., wake time is 8:00 a.m.. He estimates getting between 7 and 8 hours of sleep at night. He gets 8-9 hours on the weekends. He takes no naps in the day, however says a short nap lasting 10- 15 minutes may be refreshing. Most of the time he feels good on waking. He feels better in the morning compared to other times of day. Habits:??Tobacco: Never smoker Caffeine: 1 cup per day Alcohol: 1 beer per day Recreational substances: none PMFSH Past Medical History Medical History Colon cancer screening Need for hepatitis C screening test Snoring BMI 40.0-44.9, adult Bilateral knee pain Myalgia Bilateral shoulder pain Dysuria BMI 36.0-36.9,adult Low back pain BPH (benign prostatic hyperplasia) Encounter to establish care Hyperlipidemia HTN (hypertension) Family History Family History Father Hypertension Lewy body dementia Mother Patient's mother is in good health Sibling Family history of malignant neoplasm of brain Grandparent Stomach cancer Diabetes mellitus Hypertension Social History Social History Smoking status: Never smoker Alcohol intake: current Drinks per week: 5 Substance use: never Substance use type: does not use Lack of Transportation: No Lack of Food: Never True Current Housing: I Have Housing Concerned About Future Housing: No Difficulty Paying Gas/Electric Bills: No Difficulty Paying for Meds: No Currently Unemployed: No Education: High School Diploma/GED Difficulty w/ Childcare or Family Care: No Living arrangements: with family Spiritual care concerns: No Medications Home Medications ?Medication ?Instructions ?Recorded ?Confirmed ?Type cyclobenzaprine 10 mg tablet 10 mg PO .PRN 01/31/22 09/09/24 History meloxicam 15 mg tablet 15 mg PO DAILY 08/11/23 09/09/24 History acetaminophen 650 mg PO DAILY PRN pain 11/19/24 05/30/25 History finasteride 5 mg tablet 5 mg PO DAILY #90 tabs 03/01/24 09/09/24 Rx tamsulosin 0.4 mg capsule 0.4 mg PO DAILY #90 caps 03/01/24 09/09/24 Rx irbesartan 300 1 tablet PO DAILY #90 tabs 05/17/24 09/09/24 Rx mg-hydrochlorothiazide 12.5 mg tablet amlodipine 10 mg tablet 10 mg PO DAILY #30 tabs 09/09/24 09/09/24 Rx eszopiclone 2 mg tablet (Lunesta) 2 mg PO QHS #1 tablet 09/19/24 Rx doxycycline hyclate 100 mg tablet 100 mg PO Q12H #14 tabs 10/05/24 Rx Sleep Procedure A full night CPAP/BPAP Titration using the [employer] multi-channel system recorded the standard physiologic parameters including EEG, EOG, submentalis EMG, anterior tibialis EMG, EKG, body position, nasal and oral airflow using nasal pressure sensor and thermistor.? Respiratory parameters of chest and abdominal movements were recorded with Respiratory Inductance Plethysmography belts. Oxygen saturation was recorded by pulse oximetry. Video monitoring was also performed. Sleep stages, periodic limb movements, and EEG arousals were scored in 30 second epochs according to the criteria of the AASM Scoring Manual. The Apnea-Hypopnea Index was calculated using CMS guidelines for definition of hypopnea with 4% O2 desaturations while scoring respiratory events. Sleep Architecture The total recording time was 515.4 minutes.? The total sleep time was 399.0 minutes. Sleep latency was 39.2 minutes. REM latency was 114.0 minutes. Sleep efficiency was 77.4%. The patient had 47 awakenings for an awakening index of 7.1. Wake after Sleep Onset time was 76.5 minutes. The patient spent 40.0 minutes, 10.0% of total sleep time in Stage N1. The patient spent 254.5 minutes, 63.8% in Stage N2. The patient spent 42.5 minutes, 10.7% in Stage N3. The patient spent 62.0 minutes, 15.5% in Stage REM. Respiratory Analysis The patient had 47 hypopneas, 5 obstructive apneas, 14 mixed apneas, and 136 adalberto tral apneas for an overall Apnea Hypopnea Index of 30.4 events per hour. The REM Apnea Hypopnea Index was 20.3. The NREM Apnea Hypopnea Index was 32.2. The patient had a Central Apnea Hypopnea Index of 20.5. There was no evidence of Joe-López Respirations. The patient was started on CPAP 7 cm H2O and titrated to BPAP 17/13 cm H2O. The patient was able to fall asleep starting on CPAP 7 cm H2O. The patient was able to achieve REM sleep starting on CPAP 11 cm H2O. The patient was unable to achieve a residual AHI less than 16 during this study. Arousals There were 108 total arousals for an arousal index of 16.2. There were 47 spontaneous arousals for an index of 7.1. ?There were 46 arousals due to respiratory events for an index of 6.9. There were 0 arousals due to periodic limb movements for an index of 0.? There were 14 arousals due to isolated limb movements for an index of 2.1. Periodic Limb Movements The patient had 38 isolated limb movements with an index of 5.7. The patient had 0 periodic limb movements with index of 0. Patient had a total of 38 limb movements with a total limb movement index of 5.7. Oximetry Data The patient had an average oxygen saturation of 94.8% in sleep with a minimum oxygen saturation of 78.0% and a maximum oxygen saturation of 99.0%. The patient had 165? oxygen desaturations that were 4% or greater resulting in an Oxygen Desaturation Index of 25.3.? The patient spent 5.8 minutes, 1.1% of total sleep time with an oxygen saturation below 88%. Snoring Profile The snoring resolved once the patient was titrated to 16 cm H2O. Cardiac Profile The EKG showed normal sinus rhythm with rare PVCs. The patient had an average pulse rate of 57.9 bpm with a minimum pulse rate of 43.0 bpm and a maximum pulse rate of 74.0 bpm. ? EEG Profile No signs of seizure activity seen. Assessment and Plan Assessment and Plan (1) Treatment-emergent central sleep apnea: Code(s): T81.89XA - Other complications of procedures, not elsewhere classified, initial encounter; G47.33 - Obstructive sleep apnea (adult) (pediatric); G47.37 - Central sleep apnea in conditions classified elsewhere Status: Acute Assessment and Plan: The patient was started on CPAP 7 cm H2O and titrated to BPAP 17/13 cm H2O. The patient developed central apneas once he was titrated to CPAP 9 cm H2O and higher. No optimal CPAP or BPAP pressure setting was found during this study. I recommend that the patient have an ASV Titration with the use of a hypnotic to ensure we obtain enough sleep data and find an optimal pressure setting. The patient needs to have an echocardiogram to ensure he has an ejection fraction of 45% or greater to be a candidate for ASV therapy. Data The data obtained during this sleep study is adequate for interpretation. Certification This sleep study has been reviewed by a board certified sleep medicine physician.
== END 2024-09-24 07:40 | disposition home or self-care (01) ==
LOC: ANHCSM 09:44
PROVIDERS: PCP Nurse Practitioner Family; Visit Provider Nurse Practitioner Family
DX: G47.33 Obstructive sleep apnea (adult) (pediatric) (principal); T81.89XA Other complications of procedures, not elsewhere classified, initial encounter; G47.37 Central sleep apnea in conditions classified elsewhere
CPT/HCPCS: 95811

== ENCOUNTER 2024-11-21 13:59 | Outpatient (CLI) | payer MEDICARE, SELFPAY ==
--- NOTE | 2024-11-21 14:06 | ECHO_ITS ---
Patient Info Name: Landon Menendez Age: 69 years : 1955 Gender: Male Ht: 68 in Wt: 270 lbs BSA: 2.48 m2 HR: 74 bpm BP: 140 / 97 mmHg Technical Quality: Poor Exam Date: 11/21/2024 2:23 PM Patient Status: O Admit Date: 11/21/2024 Exam Type: CA echo dop color flow w con Complete two-dimensional, color flow and Doppler transthoracic echocardiogram is performed with contrast to opacify the left ventricle and to improve the deliniation of the left ventricle endocardial borders. Operations Research Group Manager: Marissa Mitchell Attending Provider: Thelma Aguilar Contrast/Agitated Saline Contrast/Ag. Saline: Definity Amount: 3.00 ml Administered By: Marissa Mitchell New IV Access: Right and Dorsum of Hand Site Condition: IV removed, Site dressing applied and No extravasation Reason for Poor Study: patient body habitus Summary 1. Definity contrast administered improved wall motion interpretation. 2. Left ventricular chamber dimension is normal. 3. Left ventricular systolic function is normal, estimated at 60-65. 4. The left ventricular diastolic function is grade I diastolic dysfunction. 5. E/e' 8 is minimally elevated. 6. There is trace tricuspid valve regurgitation. 7. No pulmonary hypertension, estimated pulmonary arterial systolic pressure is 25 mmHg. 8. There is trace pulmonic regurgitation. Left Ventricle E/e' 8 is minimally elevated. Left ventricular chamber dimension is normal. Left ventricular systolic function is normal, estimated at 60-65. The left ventricular diastolic function is grade I diastolic dysfunction. Definity contrast administered improved wall motion interpretation. Right Ventricle Right ventricular chamber dimension is normal. Right ventricular systolic function is normal. Left Atria Left atrial chamber dimension is normal. Right Atria Right atrial chamber dimension is normal. Aortic Valve The aortic valve is trileaflet. There is no aortic valve stenosis. There is no aortic valve regurgitation. Pulmonic Valve There is trace pulmonic regurgitation. Mitral Valve There is no mitral valve stenosis. There is no mitral valve regurgitation. Tricuspid Valve There is trace tricuspid valve regurgitation. No pulmonary hypertension, estimated pulmonary arterial systolic pressure is 25 mmHg. Pericardium/Pleural There is no pericardial effusion. Inferior Vena Cava Normal inferior vena cava with >50% collapse upon inspiration consistent with normal right atrial pressure, 5 mmHg. Aorta The aortic root size at the sinus of Valsalva is normal. Left Ventricular Outflow Tract Name Value Normal LVOT 2D LVOT Diameter 2.1 cm LVOT Doppler LVOT Peak Velocity 89 cm/s LVOT Peak Gradient 3 mmHg LVOT Mean Gradient 2 mmHg LVOT VTI 17 cm LVOT VTI/AV VTI Ratio 0.9 LVOT Stroke Volume 62 ml LVOT CO 4.3 l/min LVOT CI 1.8 l/min/m2 Pulmonic Valve Name Value Normal RVOT Doppler RVOT Peak Velocity 96 cm/s RVOT Peak Gradient 4 mmHg PV Doppler PV Peak Velocity 138 cm/s PV Peak Gradient 8 mmHg Mitral Valve Name Value Normal MV Diastolic Function MV E Peak Velocity 68 cm/s MV A Peak Velocity 84 cm/s MV E/A 0.8 MV Decel Time (PW) 195 ms Tricuspid Valve Name Value Normal TV Regurgitation Doppler TR Peak Velocity 223 cm/s TR Peak Gradient 20 mmHg Estimated PAP/RSVP RA Pressure 5 mmHg <=5 PA Systolic Pressure 25 mmHg <36 RV Systolic Pressure 25 mmHg <36 Aorta Name Value Normal Ascending Aorta Ao Root Diameter (MM) 3.4 cm Ao Root Diam Index (MM) 1.4 cm/m2 Aortic Valve Name Value Normal AV Doppler AV Peak Velocity 109 cm/s AV Peak Gradient 5 mmHg AV Mean Gradient 3 mmHg AV VTI 20 cm AV Area (Cont Eq VTI) 3.1 cm2 >=3.0 AV Area (Cont Eq Calvin) 2.9 cm2 AV DI (Calvin) 0.81 AV Regurgitation 2D LVOT Area 3.6 cm2 Ventricles Name Value Normal LV Dimensions 2D/MM IVS Diastolic Thickness (2D) 0.9 cm 0.6-1.0 IVS Diastole Thickness (MM) 1.1 cm 0.6-1.0 LVID Diastole (2D) 5.0 cm 4.2-5.8 LVID Diastole (MM) 5.3 cm 4.2-5.8 LVIW Diastolic Thickness (2D) 1.3 cm 0.6-1.0 LVIW Diastolic Thickness (MM) 0.7 cm 0.6-1.0 LVID Systole (2D) 3.0 cm 2.5-4.0 LVID Systole (MM) 3.1 cm 2.5-4.0 LVOT Diameter 2.1 cm LV Mass (2D Cubed) 204.98 g 88.00-224.00 LV Mass Index (2D Cubed) 83 g/m2 49-115 Relative Wall Thickness (2D) 0.51 <=0.42 LV Mass (MM Cubed) 165.97 g 88.00-224.00 LV Mass Index (MM Cubed) 67 g/m2 49-115 Relative Wall Thickness (MM) 0.26 LV Fractional Shortening/Ejection Fraction 2D/MM LV Fractional Shortening (2D) 39 % 25-43 LV Fractional Shortening (MM) 40 % 25-43 LV EF (MM Teichholz) 70 % LV EF (2D Teichholz) 69 % LV Diastolic Volume (4C MOD) 71 ml LV EF (4C MOD) 69 % LV Diastolic Volume (2C MOD) 66 ml LV EF (2C MOD) 58 % LV Diastolic Volume (BP MOD) 68 ml 62-150 LV Diastolic Volume Index (BP MOD) 27 ml/m2 34-74 LV Systolic Volume (BP MOD) 24 ml 21-61 LV Systolic Volume Index (BP MOD) 10 ml/m2 11-31 LV EF (BP MOD) 65 % 52-72 LV Diastolic Length (4C) 7.4 cm LV Systolic Length (4C) 6.1 cm LV Stroke Volume (4C MOD) 49 ml Atria Name Value Normal LA Dimensions LA Dimension (MM) 4.1 cm 3.0-4.0 LA Volume (4C A-L) 26 ml LA Volume (BP A-L) 36 ml RA Dimensions RA Systolic Major [place] Length (4C) 4.7 cm 2.1-2.7 RA Area (4C) 12.7 cm2 <=18.0 Report Signatures
--- OUTSIDE RECORDS SUMMARY | 2024-11-21 14:14 | XMS_ITS | Clinical Summary ---
Author Organization [facility] Address [address] [place] [id number] Care Team Providers Care Wood Repatcher Name Role Phone Unavailable Primary Care Provider [...]
[2024-11-21] MEDS: PERFLUTREN LIPID MICROSPHERES 1.5 ML VIAL DILUTED TO 10 ML TOTAL VOLUME IV PUSH (15:05)
--- NOTE | 2024-11-24 11:45 | IVDEFINITY ---
Prior to administration of IV Definity the patient was educated on the risks and benefits of the imaging enhancing agent including potential adverse side effects. The patient verbalized understanding. Allergies were verified. No exclusion criteria were identified and at least one of the following inclusion criteria were met: 1) physician request, 2) patient technically difficult to image (per the [place] [employer]chocardi[employer] guidelines of two or more segments not discernable within the apical view), or 3) questionable left ventricular function. ?
== END 2024-11-21 14:00 | disposition home or self-care (01) ==
PROVIDERS: PCP Nurse Practitioner Family; Visit Provider Nurse Practitioner Family
DX: G47.33 Obstructive sleep apnea (adult) (pediatric) (principal)
CPT/HCPCS: C8929; Q9957

== ENCOUNTER 2025-02-09 09:32 | Outpatient (CLI) | payer MEDICARE, SELFPAY ==
--- NOTE | 2025-03-02 11:27 | WPDSLEEPSTUD ---
Sleep Study Date of Study: 02/09/25 Ordering Provider: Parrish Alexandra APRN Interpreting Physician: Cyndee Arevalo MD Sleep Study Type: ASV Height: 1.73 m Weight: 122.47 kg Body Mass Index: 41.0 Neck Circumference (inches): 18.5 Staley: 7 Reason for Sleep Study * 09/08/2024 PSG : overall AHI of 51.8, RAMONITA of 8.2, with desaturation down to 77%. * 09/23/2024 CPAP/ BiPAP titration : CPAP 7 cm to BiPAP 17/13 cm with worsening treatment emergent central apneas once he was titrated to CPAP 9 cm H2O and higher. No optimal CPAP or BPAP pressure found. He returns for an ASV titration. Sleep History This history is from his 09/23/2024 CPAP /BiPAP titration. Landon Menendez is a 69-year-old man who is required to have sleep testing for a [employer] physical exam. He rarely awakens from sleep feeling short of breath. He occasionally wakes at night with heartburn, belching or coughing.??He occasionally snores, occasionally snores loudly enough that others complain. He rarely has trouble sleeping when he has a cold. He never wakes up gasping for breath during the night. He never has breathing problems at night. He never sweats excessively at night. He never notices his heart pounding or beating irregularly during the night. He rarely falls asleep during the day. He rarely falls asleep involuntarily, never falls asleep while driving. He never experiences loss of muscle tone with strong emotion. He never has daytime difficulty at work due to excessive sleepiness. He never feels paralyzed on waking or falling asleep. He never experiences vivid dreams upon waking or falling asleep. He never feels afraid of going to sleep. He never has nightmares. He rarely recalls his dreams. He rarely has thoughts racing through his mind. He never feels sad or depressed. He rarely feels anxiety. He rarely notices parts of his body jerk. He never kicks during the night. He rarely feels crawling or aching feelings in his legs. He rarely feels leg pain at night. He never has morning jaw pain, occasionally grinds his teeth at night. He rarely feels bothered by pain during the day, rarely is awakened by pain during the night. He never wakes up feeling stiff in the morning, and he rarely wakes feeling sore or achy. He rarely awakens with pain in his neck, spine, or joints. He has fatigue Normal bedtime is 8:30 p.m., falling asleep within 15-20 minute, waking twice at night to go to the bathroom, returning to sleep within 10 minutes. He wakes at 6:00 a.m.. On weekends, bedtime is 9:30 p.m., wake time is 8:00 a.m.. He estimates getting between 7 and 8 hours of sleep at night. He gets 8-9 hours on the weekends. He takes no naps in the day, however says a short nap lasting 10-15 minutes may be refreshing. Most of the time he feels good on waking. He feels better in the morning compared to other times of day. Habits:??Tobacco: Never smoker Caffeine: 1 cup per day Alcohol: 1 beer per day Recreational substances: none PMFSH Past Medical History Medical History (Updated 03/02/25 @ 11:31 by Cyndee Arevalo MD) Obstructive sleep apnea Treatment-emergent central sleep apnea Colon cancer screening Need for hepatitis C screening test Snoring BMI 40.0-44.9, adult Bilateral knee pain Myalgia Bilateral shoulder pain Dysuria BMI 36.0-36.9,adult Low back pain BPH (benign prostatic hyperplasia) Encounter to establish care Hyperlipidemia HTN (hypertension) Family History Family History Father Hypertension Lewy body dementia Mother Patient's mother is in good health Sibling Family history of malignant neoplasm of brain Grandparent Stomach cancer Diabetes mellitus Hypertension Social History Social History Smoking status: Never smoker Alcohol intake: current Drinks per week: 5 Substance use: never Substance use type: does not use Lack of Transportation: No Lack of Food: Never True Current Housing: I Have Housing Concerned About Future Housing: No Difficulty Paying Gas/Electric Bills: No Difficulty Paying for Meds: No Currently Unemployed: No Education: High School Diploma/GED Difficulty w/ Childcare or Family Care: No Living arrangements: with family Spiritual care concerns: No Medications Home Medications ?Medication ?Instructions ?Recorded ?Confirmed ?Type cyclobenzaprine 10 mg tablet 10 mg PO .PRN 01/31/22 01/11/25 History meloxicam 15 mg tablet 15 mg PO DAILY 08/11/23 01/11/25 History acetaminophen 650 mg PO DAILY PRN pain 03/01/24 01/11/25 History finasteride 5 mg tablet 5 mg PO DAILY #90 tabs 03/01/24 01/11/25 Rx tamsulosin 0.4 mg capsule 0.4 mg PO DAILY #90 caps 03/01/24 01/11/25 Rx amlodipine 10 mg tablet 10 mg PO DAILY #30 tabs 12/20/24 01/11/25 Rx irbesartan 300 1 tablet PO DAILY #90 tabs 12/20/24 01/11/25 Rx mg-hydrochlorothiazide 12.5 mg tablet zolpidem 10 mg tablet 10 mg PO ONCE #1 tablet 01/11/25 01/11/25 Rx doxycycline hyclate 100 mg tablet 100 mg PO Q12H #14 tabs 01/30/25 Rx Sleep Procedure A full night ASV titration was conducted using the [employer] multi-channel system recorded the standard physiologic parameters including EEG, EOG, submentalis EMG, anterior tibialis EMG, EKG, body position, nasal and oral airflow using PAP device flow signal. Respiratory parameters of chest and abdominal movements were recorded with Respiratory Inductance Plethysmography belts. Oxygen saturation was recorded by pulse oximetry. Video monitoring was also performed. Sleep stages, periodic limb movements, and EEG arousals were scored in 30 second epochs according to the criteria of the AASM Scoring Manual. The Apnea-Hypopnea Index was calculated using CMS guidelines for definition of hypopnea with 4% O2 desaturations while scoring respiratory events.The patient took Ambien 10 mg at the start of the study. He used a medium [employer]Ed AirTouch F20 full face mask, titration started at default ASV settings - EPAP 4 cm, minimum pressure support 3 cm, maximum pressure support 15 cm. The EPAP was increased per protocol, with setting from EPAP 4 increased by 1 cm increments to a maximum pressure of EPAP 11, min PS 3, Max PS 15. Central apneas were eliminated however some obstructive hypopneas persisted with all attempted pressures. Intermittent high leak could not be resolved. At an ASV pressure of EPAP 7 cm, minimum pressure support 3 cm and maximum pressure support 15 cm, he spent 77.5 minutes in bed, 6.5 minutes awake, 51.5 minutes in NREM, and 19.5 minutes in REM. Sleep efficiency was 91.6%, residual AHI was 12.7. He had REM in the left lateral position as well as NREM sleep in the supine position. This was the best pressure during this study. The goal using ASV is to acheive an AHI of 10 or below. He is close with a residual AHI 12.7. Sleep Architecture The total recording time was 436.4 minutes. The total sleep time was 392.0 minutes. Sleep latency was 8.0 minutes. REM latency was 91.0 minutes. Sleep efficiency was 89.8%. The patient had 26 awakenings for an awakening index of 4.0. Wake after Sleep Onset time was 36.5 minutes. The patient spent 21.5 minutes, 5.5% of total sleep time in Stage N1. The patient spent 259.5 minutes, 66.2% in Stage N2. The patient spent 44.5 minutes, 11.4% in Stage N3. The patient spent 66.5 minutes, 17.0% in Stage REM. Respiratory Analysis The patient had 156 hypopneas, no obstructive apneas, no mixed apneas, and 10 central apneas for an overall Apnea Hypopnea Index of 25.1 events per hour. The REM Apnea Hypopnea Index was 6.3. The NREM Apnea Hypopnea Index was 28.9. The patient had a Central Apnea Hypopnea Index of 1.5. There were no Respiratory Effort Related Arousals. The Respiratory Disturbance Index is 26.2 events per hour. There was no evidence of Joe-López Respirations. Arousals There were 113 total arousals for an arousal index of 17.3. There were 78 spontaneous arousals for an index of 11.9. There were 25 arousals due to respiratory events for an index of 3.8. There were 3 arousals due to periodic limb movements for an index of 0.5. There were 7 arousals due to isolated limb movements for an index of 1.1. Periodic Limb Movements The patient had 22 isolated limb movements with an index of 3.4. The patient had 95 periodic limb movements with index of 14.5. Patient had a total of 117 limb movements with a total limb movement index of 17.9. Oximetry Data The patient had an average oxygen saturation of 92.4% in sleep with a minimum oxygen saturation of 82% and a maximum oxygen saturation of 99%. The patient had 164 oxygen desaturations that were 4% or greater resulting in an Oxygen Desaturation Index of 25.1. The patient spent 7.4 minutes, 1.7% of total sleep time with an oxygen saturation below 88%. Snoring Profile During titration, snoring was improved however he had a high mask leak. Noise from the leak at time was loud. Cardiac Profile The EKG showed normal sinus rhythm. The patient had an average pulse rate of 63 bpm with a minimum pulse rate of 50 bpm and a maximum pulse rate of 82 bpm. No arrhythmias noted. EEG Profile No signs of seizure activity seen. Assessment and Plan Assessment and Plan (1) Treatment-emergent central sleep apnea: Code(s): T81.89XA - Other complications of procedures, not elsewhere classified, initial encounter; G47.33 - Obstructive sleep apnea (adult) (pediatric); G47.37 - Central sleep apnea in conditions classified elsewhere Status: Acute Assessment and Plan: This patient had a challenging ASV titration with an acceptable pressure of EPAP 7 cm, minimum pressure support 3 cm and maximum pressure support 15 cm using a medium ResMed AirTouch F20 full face mask and and heated humidity. At this ASV setting, he spent 77.5 minutes in bed, 6.5 minutes awake, 51.5 minutes in NREM, and 19.5 minutes in REM. Sleep efficiency was 91.6%, residual AHI was 12.7. He had REM in the left lateral position as well as NREM Sleep in the supine position. The patient should be prescribed this ResMed equipment as well as tubing, filters and reservoir. This should be used with all episodes of sleep. Compliance should be reviewed within 31-90 days of starting therapy for usage greater than 4 hours per night greater than 70% of the nights. The patient should be asked about symptoms such as excessive daytime sleepiness, quality of sleep, decreased nocturia, increased mental functioning such as memory, mood, and concentration. BMI is 41. Weight management is advised. Clinical data suggests that weight loss of 10% can reduce the severity of respiratory events and snoring and improve AHI by as much as 25%. (2) Obstructive sleep apnea: Code(s): G47.33 - Obstructive sleep apnea (adult) (pediatric) Status: Acute Assessment and Plan: His initial diagnosis was severe ROSA with overall AHI 41.8 and mild central apnea, central AHI 8.2 on his initial study. He developed treatment emergent centrals on the CPAP BiPAP titration. Obstructive apneas have been treated at this final ASV pressure. See above. Data The data obtained during this sleep study is adequate for interpretation. Certification This sleep study has been reviewed by a board certified sleep medicine physician.
[2025-03-02 12:00] VITALS: BMI 41.0
== END 2025-02-10 06:58 | disposition home or self-care (01) ==
PROVIDERS: PCP Nurse Practitioner Family; Visit Provider Nurse Practitioner Family
DX: T81.89XA Other complications of procedures, not elsewhere classified, initial encounter (principal); G47.33 Obstructive sleep apnea (adult) (pediatric); G47.37 Central sleep apnea in conditions classified elsewhere; G47.31 Primary central sleep apnea; G47.32 High altitude periodic breathing; I10 Essential (primary) hypertension; Z68.41 Body mass index [BMI] 40.0-44.9, adult
CPT/HCPCS: 95811